=== PATIENT | female | born 1960 | race Caucasian/White ===

== ENCOUNTER 2016-12-22 10:08 | Emergency (ER) | payer MEDICAID, OTHER ==
[~2016-12-22] VITALS: Ht 149.9 cm; Wt 46.5 kg
[~2016-12-22 10:08] MED LIST: LORT5TAB PO; Z.0.NO CURRENT MEDS
[2016-12-22 10:09] VITALS: BP 174/80; PULSE 93; RESP 14; TEMP 98.9; O2SAT 96
[2016-12-22] MEDS ORDERED: AMOX875T PO (13:19)
[2016-12-22] MEDS ORDERED: FLUT1SPR5 EACH NARE (13:19)
--- NOTE | 2016-12-22 13:26 | PD ---
HPI Chief Complaint: ENT Complaint Time Seen by Provider: 13:17 Travel History International Travel<30 days: No Contact w/Intl Traveler<30days: No Traveled to known affect area: No History of Present Illness HPI 56-year-old female presents the emergency department with bilateral ear pain and discomfort for the past month. She states it comes and goes but worse in the right than the left. Patient is also had a lot of sinus congestion and postnasal drip as well as occasional sore throat. She denies significant cough, shortness of breath, or fever. Patient is been using over- the-counter medications without improvement. Pain is about a 7 out of 10. Patient wears dentures and denies increased pain with chewing. She has no known drug allergies. PFSH Past Medical History Blood Disorders: No Cancer: No Diminished Hearing: No Endocrine: No Psychiatric: No Reproductive: No Immunizations Current: No Tetanus Vaccination: > 5 Years ?: Not Past Surgical History Section: Yes (3) Other Surgery: Yes (3 C SECTIONS) Social History Alcohol Use: Yes (TWICE PER MONTH) Tobacco Use: Yes (PACK A DAY) Substance Use: No Allergies-Medications (Allergen,Severity, Reaction): Coded Allergies: No Known Allergies (Verified , 12/22/16) Reported Meds & Prescriptions Reported Meds & Active Scripts Active Flonase Nasal [place] (Fluticasone Nasal [place]) 50 Mcg/Act [place] 100 Mcg EACH NARE BID Amoxicillin 875 Mg Tab 875 Mg PO BID 10 Days Review of Systems Except as stated in HPI: all other systems reviewed are Neg General / Constitutional: No: Fever Eyes: No: Visual changes HENT: Positive: Headaches, Sore Throat, Rhinitis, Rhinorrhea, Congestion, Earache, No: Vertigo, Lightheadedness, Nosebleed, Neck Stiffness, Neck Pain, Masses, Gingival Bleeding, Dental Difficulties, Ear Discharge Cardiovascular: No: Chest Pain or Discomfort Respiratory: No: Cough, Shortness of Breath, Wheezing Gastrointestinal: No: Abdominal Pain Genitourinary: No: Dysuria Musculoskeletal: No: Pain Skin: No Rash Neurologic: No: Weakness Psychiatric: No: Depression Endocrine: No: Polydipsia Hematologic/Lymphatic: No: Easy Bruising Physical Exam Narrative GENERAL: Patient appears in acute distress. SKIN: Warm and dry. Normal color. Normal turgor. HEAD: Atraumatic. Normocephalic. No sinus tenderness palpation or percussion. EYES: Pupils equal and round. No scleral icterus. No injection or drainage. ENT: No nasal bleeding or discharge. Mucous membranes pink and moist. Both TMs appear somewhat dull bilaterally with clear serous effusions bilaterally. No injection. Patient does have sinus congestion and rhinitis. Her pharynx is rather unremarkable at this time. Airway is patent. No significant lymphadenopathy. No exudate. NECK: Trachea midline. Supple and nontender. CARDIOVASCULAR: Regular rate and rhythm. RESPIRATORY: No accessory muscle use. Clear to auscultation. Breath sounds equal bilaterally. GASTROINTESTINAL: Abdomen soft, non-tender, nondistended. Hepatic and splenic margins not palpable. MUSCULOSKELETAL: Extremities without clubbing, cyanosis, or edema. No obvious deformities. NEUROLOGICAL: Awake and alert. No obvious cranial nerve deficits. Motor grossly within normal limits. Five out of 5 muscle strength in the arms and legs. Normal speech. PSYCHIATRIC: Appropriate mood and affect; insight and judgment normal. Data Data Last Documented VS Vital Signs Date Time Temp Pulse Resp B/P (MAP) Pulse Ox O2 Delivery O2 Flow Rate FiO2 12/22/16 10:09 98.9 93 14 174/80 (111) 96 MDM Medical Decision Making Medical Screen Exam Complete: Yes Emergency Medical Condition: Yes Differential Diagnosis Chronic allergic rhinitis. Eustachian tube dysfunction. Serous otitis. Narrative Course Patient is treated with amoxicillin 875 twice a day 10 days. Patient also started Flonase nasal spray 2 sprays each nostril daily. She can continue with [id number] decongestant as needed. Patient take Tylenol or ibuprofen as needed. Patient follow up with primary care physician as needed. Diagnosis Primary Impression: Acute serous otitis media of both ears Qualified Codes: H65.03 - Acute serous otitis media, bilateral Additional Impression: Rhinitis, chronic Qualified Codes: J31.0 - Chronic rhinitis Referrals: Primary Care Physician Patient Instructions: General Instructions Additional Instructions: Patient is treated with amoxicillin 875 twice a day 10 days. Patient also started Flonase nasal spray 2 sprays each nostril daily. She can continue with [id number]-eygoyqz decongestant as needed. Patient take Tylenol or ibuprofen as needed. Patient follow up with primary care physician as needed. Med/Other Pt SpecificInfo: Prescription(s) given Scripts Fluticasone Nasal [place] (Flonase Nasal [place]) 50 Mcg/Act [place] 100 MCG EACH NARE BID for Allergies, #1 BOTTLE 0 Refills Prov: Mary Ann Hahn MD 12/22/16 Amoxicillin (Amoxicillin) 875 Mg Tab 875 MG PO BID for Infection for 10 Days, #20 TAB 0 Refills Prov: Mary Ann Hahn MD 12/22/16 Disposition: 01 DISCHARGE HOME Condition: Stable Raffi Gillette Dec 22, 2016 13:26
== END 2016-12-22 13:45 | disposition home or self-care (01) ==
LOC: NEPK 10:08
DX: H65.03 Acute serous otitis media, bilateral (principal); J31.0 Chronic rhinitis; F17.200 Nicotine dependence, unspecified, uncomplicated
CPT/HCPCS: 99284